=== PATIENT | female | born 1950 | race Two or more races ===

== ENCOUNTER 2023-10-22 05:59 | Inpatient (IN) | payer BC, MEDICARE ==
[~2023-10-22] VITALS: Ht 162.6 cm; Wt 82.0 kg
[2023-10-22] VITALS (7 sets, daily range): BP systolic 122–126; BP diastolic 60–69; PULSE 79–96; RESP 16–18; TEMP 97.5–98.5; O2SAT 93–96
[2023-10-22] MEDS: cefTRIAXone SOD 1,000 MG VL IM ONE (07:21)
[2023-10-22] MEDS: AZITHROMYCIN 500MG/ 250ML 250 ML IV ONE (07:44)
[2023-10-22] MEDS: LACTULOSE 20Gm/30ML SOLN PO ONE (07:53)
[2023-10-22] MEDS: SODIUM CHLORIDE 0.9% 1,000 ML IV ONE (07:55)
[2023-10-22 07:58] LABS: Urine Bacteria None Seen /hpf (None Seen)
[2023-10-22 08:07] LABS: Basophils # (auto) 0.1 10 ^3/uL (0-0.2); Basophils % (auto) 0.5 % (0.0-2.0); Eosinophils # (auto) 0.1 10 ^3/uL (0-0.8); Eosinophils % (auto) 0.5 % (0.0-7.0); Hematocrit 36.7 % (36.0-46.0); Hemoglobin 12.6 g/dL (12.2-16.2); Lymphocytes # (auto) 1.2 10 ^3/uL (0.4-5.4); Lymphocytes % (auto) 8.8 % (10.0-50.0); Mean Corpuscular Hemoglobin 31.3 pg (28.0-32.0); Mean Corpuscular Hgb Conc. 34.2 g/dL (32.0-36.0); Mean Corpuscular Volume 91.6 fL (80.0-100.0); Monocytes # (auto) 0.5 10 ^3/uL (0-1.3); Monocytes % (auto) 3.4 % (0.0-12.0); Neutrophils # (auto) 11.6 10 ^3/uL (1.6-8.6); Neutrophils % (auto) 86.8 % (37.0-80.0); Red Blood Cells 4.01 10^6/uL (4.0-5.20); Red Cell Distribution Width 13.3 % (11.8-14.3); White Blood Cell 13.4 10^3/uL (4.4-10.8)
[2023-10-22 08:10] LABS: Urine Blood Negative /uL (Negative); Urine Clarity Clear (Clear); Urine Color Colorless (Yellow); Urine Protein, UAD Negative (Negative); Urine Specific Gravity 1.011 (1.001-1.035); Urine Urobilinogen Normal (Negative); Urine WBC 1 /hpf (0 - 5); Urine pH 5.5 (5.0-9.0)
[2023-10-22 08:14] LABS: Chloride 108 mmol/L (98-107); Potassium 3.7 mmol/L (3.5-5.1); Sodium 141 mmol/L (136-145)
[2023-10-22 08:15] LABS: Anion Gap 10 (5-15); Carbon Dioxide 23 mmol/L (20-30)
[2023-10-22 08:16] LABS: Calcium 9.4 mg/dL (8.7-10.4)
[2023-10-22 08:20] LABS: Glucose 105 mg/dL (74-106)
[2023-10-22 08:21] LABS: BUN/Creatinine Ratio 16.9 (10.0-20.0); Blood Urea Nitrogen 12 mg/dL (9-23)
[2023-10-22 10:03] LABS: COVID19 ANTIGEN SOFIA FIA POSITIVE (NEGATIVE)
[2023-10-22] MEDS ORDERED: REMDESIVIR PER PHARMACY 0 ML IV SCH ×2 (10:30→10:45)
[2023-10-22] MEDS ORDERED: NITROGLYCERIN 0.4 MG SL TAB SL PRN ×2 (10:30→10:45)
[2023-10-22] MEDS ORDERED: ALBUTEROL SULF HFA 90MCG INH 200DOSE IN PRN ×2 (10:30→10:45)
[2023-10-22] MEDS ORDERED: ACETAMINOPHEN 500 MG TAB PO PRN ×2 (10:30→10:45)
[2023-10-22] MEDS ORDERED: ONDANSETRON HCL 4 MG/2 ML VIAL IV PRN ×2 (10:30→10:45)
[2023-10-22] MEDS ORDERED: DOXYCYCLINE 100MG/250ML 250 ML IV ONE (10:30)
[2023-10-22] MEDS ORDERED: MORPHINE SULFATE INJ 2 MG/ml SYRG IV PRN ×2 (10:30→10:45)
[2023-10-22] MEDS ORDERED: DOCUSATE SOD 100 MG CAP PO PRN ×2 (10:30→10:45)
[2023-10-22] MEDS ORDERED: SODIUM CHLORIDE 0.9% 1,000 ML IV SCH (10:30)
[2023-10-22] MEDS ORDERED: DOXYCYCLINE 100MG/250ML 250 ML IV SCH (10:30)
[2023-10-22 11:18] LABS: Thyroid Stimulating Hormone 1.44 uIU/mL (0.55-4.78)
[2023-10-22 11:34] LABS: Magnesium 2.1 mg/dL (1.6-2.6)
[2023-10-22 11:44] LABS: CRP High Sensitivity 3.54 mg/dL (<1.0)
[2023-10-22] MEDS: SODIUM CHLORIDE 0.9% 1,000 ML IV SCH (12:22)
[2023-10-22] MEDS: DexAMETHasone SOD PHOS 10MG/1ML VIAL INJ IV SCH (12:23)
[2023-10-22] MEDS: ZINC SULFATE 220mg CAP or TAB PO SCH (12:24)
[2023-10-22] MEDS: DOXYCYCLINE 100MG/250ML 250 ML IV ONE (12:25)
[2023-10-22] MEDS: DOXYCYCLINE 100MG/250ML 250 ML IV SCH (21:47)
[2023-10-23] VITALS (10 sets, daily range): BP systolic 100–129; BP diastolic 43–71; PULSE 69–83; RESP 16–20; TEMP 97.3–98.4; O2SAT 94–98
[2023-10-23 07:31] LABS: Basophils # (auto) 0 10 ^3/uL (0-0.2); Basophils % (auto) 0.1 % (0.0-2.0); Eosinophils # (auto) 0 10 ^3/uL (0-0.8); Lymphocytes % (auto) 16.2 % (10.0-50.0); Mean Corpuscular Hemoglobin 30.7 pg (28.0-32.0); Mean Corpuscular Hgb Conc. 33.2 g/dL (32.0-36.0); Mean Corpuscular Volume 92.6 fL (80.0-100.0); Monocytes # (auto) 0.8 10 ^3/uL (0-1.3); Monocytes % (auto) 6.3 % (0.0-12.0); Neutrophils # (auto) 9.4 10 ^3/uL (1.6-8.6); Neutrophils % (auto) 77.4 % (37.0-80.0); Red Blood Cells 3.89 10^6/uL (4.0-5.20); Red Cell Distribution Width 13.7 % (11.8-14.3); White Blood Cell 12.2 10^3/uL (4.4-10.8)
[2023-10-23 07:54] LABS: Alanine Aminotransferase 48 U/L (7-40); Albumin 3.9 g/dL (3.2-4.8); Alkaline Phosphatase 105 U/L (46-116); Anion Gap 11 (5-15); Aspartate Aminotransferase 28 U/L (13-40); BUN/Creatinine Ratio 14.8 (10.0-20.0); Blood Urea Nitrogen 9 mg/dL (9-23); Calcium 9.5 mg/dL (8.7-10.4); Carbon Dioxide 20 mmol/L (20-30); Chloride 111 mmol/L (98-107); Glucose 95 mg/dL (74-106); Potassium 3.8 mmol/L (3.5-5.1); Sodium 142 mmol/L (136-145)
[2023-10-23 07:55] LABS: Bilirubin, Total 0.3 mg/dL (0.2-1.0); Total Protein 6.7 g/dL (5.7-8.2)
[2023-10-23] MEDS ORDERED: ENOXAPARIN SOD 40 MG/0.4 ML SYRINGE SC SCH (10:00)
[2023-10-23] MEDS ORDERED: DexAMETHasone SOD PHOS 10MG/1ML VIAL INJ IV SCH (10:00)
[2023-10-23] MEDS ORDERED: ZINC SULFATE 220mg CAP or TAB PO SCH (10:00)
[2023-10-23] MEDS: ENOXAPARIN SOD 40 MG/0.4 ML SYRINGE SC SCH (10:15)
[2023-10-23] MEDS: SODIUM CHLORIDE 0.9% 1,000 ML IV SCH (13:45)
[2023-10-24 01:00] VITALS: BP 120/60; PULSE 69; RESP 17; TEMP 97.8; O2SAT 97
[2023-10-24 07:30] LABS: Anion Gap 8 (5-15); Carbon Dioxide 23 mmol/L (20-30); Chloride 110 mmol/L (98-107); Potassium 3.9 mmol/L (3.5-5.1); Sodium 141 mmol/L (136-145)
[2023-10-24 07:31] LABS: Calcium 9.3 mg/dL (8.7-10.4)
[2023-10-24 07:36] LABS: Blood Urea Nitrogen 13 mg/dL (9-23); Glucose 95 mg/dL (74-106)
[2023-10-24 08:00] VITALS: PULSE 83; RESP 20; O2SAT 97
[2023-10-24 08:03] LABS: BUN/Creatinine Ratio 18.6 (10.0-20.0); CRP High Sensitivity 1.05 mg/dL (<1.0)
[2023-10-24 09:00] VITALS: BP 118/69; PULSE 83; RESP 20; TEMP 97.9; O2SAT 97
[2023-10-24] MEDS: CHOLECALCIFEROL (VITD3) 1,000UNIT=25mCg TAB PO SCH (10:21)
[2023-10-24] MEDS: ZINC SULFATE 220mg CAP or TAB PO SCH (10:21)
[2023-10-24] MEDS: ASCORBIC ACID 500 MG TAB PO SCH (10:22)
[2023-10-24 10:47] VITALS: O2SAT 97
[2023-10-24 12:09] LABS: Erythrocyte Sedimentation Rate 38 mm/hr (0-20)
[2023-10-24 12:24] VITALS: BP 138/83; PULSE 68; RESP 20; TEMP 98.4; O2SAT 96
[2023-10-24] MEDS ORDERED: DOXY-447 PO (14:36)
[2023-10-24] MEDS ORDERED: BENZ100C97 PO (14:36)
[2023-10-24 15:17] VITALS: BP 136/81; PULSE 69; RESP 16; TEMP 98.6; O2SAT 96
== END 2023-10-24 15:35 | disposition home or self-care (01) | DRG 871 ==
LOC: ER 05:59 → OVERFLOW 10:31 → ER 10:31 → WEST WING 16:04
PROVIDERS: ADMIT Nurse Practitioner Family; ATTEND Nurse Practitioner Family
DX: A41.89 Other specified sepsis (principal); U07.1 COVID-19; J12.82 Pneumonia due to coronavirus disease 2019; J96.00 Acute respiratory failure, unspecified whether with hypoxia or hypercapnia; E66.9 Obesity, unspecified; E78.5 Hyperlipidemia, unspecified; Z86.11 Personal history of tuberculosis; Z68.31 Body mass index [BMI] 31.0-31.9, adult
CPT/HCPCS: 36415; 71046; 71250; 80048; 80053; 81001; 82306; 82728; 83605; 83615; 83735; 84443; 85025; 85379; 85652; 86141; 87040; 87426; G0378; J0696; J1100; J3490

== ENCOUNTER → 2023-12-28 | Outpatient (CLI) | payer BC, MEDICARE ==
[~2023-12-28] MED LIST: BENZ100C97 PO; DOXY1CAP58 PO
--- NOTE | 2024-01-05 12:26 | DVH ---
ULTRASOUND-GUIDED BIOPSY OF THE THYROID GLAND HISTORY: NODULE right lobe upper and lower pole COMPARISON: None TECHNIQUE: Informed consent was obtained. Risks versus benefits were discussed. Patient consents to the procedure. A time out was conducted confirming lab values, the correct patient, the correct procedure and site of procedure. FINDINGS: Informed consent was obtained. Risks versus benefits were discussed. Patient consents to the procedure. A time out was conducted confirming lab values, the correct patient, the correct procedure and site of procedure. The patient was prepped and draped in the usual sterile fashion. Local anesthesia was achieved using 1% lidocaine. A 22 needle was inserted into the target lesion of the right thyroid gland under ultrasound guidance. separate fine needle aspirations were performed and submitted to the on-site pathologist. Once the pathologist confirmed that sufficient cellular material had been obtained, the procedure was terminated. The patient tolerated the procedure well without any immediate complications and recovered for 2 hours. The patient was discharged without incident. IMPRESSION: 1. Ultrasound-guided fine-needle aspiration biopsy of the right upper and lower lobe thyroid nodule. DEN WONG
== END | disposition home or self-care (01) ==
LOC: XYW 10:35
PROVIDERS: ATTEND Internal Medicine
DX: E04.1 Nontoxic single thyroid nodule (principal)
CPT/HCPCS: 10005; 10006; 76942

== ENCOUNTER → 2024-02-08 | Outpatient (CLI) | payer BC, MEDICARE ==
--- NOTE | 2024-02-08 12:14 | DVH ---
US US GUIDANCE FOR NEEDLE PLACEME, HISTORY: Thyroid NODULES PROCEDURE: An informed consent was obtained. Limited localization ultrasound of the thyroid gland was obtained. The right neck base was prepped with chlorhexidine which was allowed to dry and draped in the usual sterile fashion. Timeout was performed. The skin and soft tissues were infiltrated with 1% Xylocaine. With ultrasound guidance, multiple fine needle aspirate biopsies of the nodules were obtai anita using a 25 gauge Secure-cut needle. The neck was cleaned and a sterile band-aid applied. The spec imens were sent to pathology for analysis. No immediate complication was identified. FINDINGS: Two solid and cystic thyroid nodules in the right thyroid lobe. Limited ultrasound of the thyroid during the biopsy demonstrates biopsy needle within nodules. IMPRESSION: Ultrasound FNA biopsy of both right thyroid nodules for molecular testing.
== END | disposition home or self-care (01) ==
LOC: US 10:30
PROVIDERS: ATTEND Nurse Practitioner Family
DX: E04.2 Nontoxic multinodular goiter (principal)
CPT/HCPCS: 10005; 10006; 76942

== ENCOUNTER → 2024-06-13 | Outpatient (CLI) | payer BC, MEDICARE ==
[2024-06-13 08:41] LABS: Hematocrit 40.9 % (36.0-46.0); Hemoglobin 13.6 g/dL (12.2-16.2); Mean Corpuscular Hemoglobin 30.9 pg (28.0-32.0); Mean Corpuscular Hgb Conc. 33.4 g/dL (32.0-36.0); Mean Corpuscular Volume 92.5 fL (80.0-100.0); Platelet Count (auto) 263 10^3/uL (140-450); Red Blood Cells 4.42 10^6/uL (4.0-5.20); Red Cell Distribution Width 13.9 % (11.8-14.3); White Blood Cell 7.6 10^3/uL (4.4-10.8)
[2024-06-13 08:48] LABS: Band Neutrophils % (manual) 0; Basophils % (manual) 0 (0.0-2.0); Blast Cells 0; Metamyelocytes % 0; Myelocytes % 0; Promyelocytes % 0; Reactive Lymphocytes 0
[2024-06-13 09:07] LABS: Lymphocytes % (manual) 25 (10.0-50.0); Monocytes % (manual) 8 (0-12)
[2024-06-13 09:08] LABS: Eosinophils % (manual) 13 (0-7); Platelet Estimate Adequate; RBC Morphology Normal
[2024-06-13 09:11] LABS: Alanine Aminotransferase 31 U/L (7-40); Albumin 4.6 g/dL (3.2-4.8); Alkaline Phosphatase 97 U/L (46-116); Anion Gap 9 (5-15); Aspartate Aminotransferase 27 U/L (13-40); BUN/Creatinine Ratio 20.5 (10.0-20.0); Bilirubin, Total 0.5 mg/dL (0.2-1.0); Blood Urea Nitrogen 17 mg/dL (9-23); Calcium 10.2 mg/dL (8.7-10.4); Carbon Dioxide 27 mmol/L (20-31); Chloride 106 mmol/L (98-107); Glucose 96 mg/dL (74-106); HDL Cholesterol 45 mg/dL (40-59); Potassium 4.3 mmol/L (3.5-5.1); Sodium 142 mmol/L (136-145); Total Protein 7.4 g/dL (5.7-8.2)
[2024-06-13 09:12] LABS: Cholesterol 296 mg/dL (< 200); LDL Cholesterol 218 mg/dL (< 100); Triglycerides 162 mg/dL (< 150)
== END | disposition home or self-care (01) ==
LOC: LAB 07:51
PROVIDERS: ATTEND Nurse Practitioner Family
DX: E78.5 Hyperlipidemia, unspecified (principal); E55.9 Vitamin D deficiency, unspecified; R79.89 Other specified abnormal findings of blood chemistry
CPT/HCPCS: 36415; 80053; 80061; 82306; 84443; 85007; 85027

== ENCOUNTER → 2024-07-03 | Outpatient (CLI) | payer BC, MEDICARE ==
[2024-07-03 08:25] LABS: Hematocrit 42.6 % (36.0-46.0); Mean Corpuscular Hemoglobin 30.4 pg (28.0-32.0); Mean Corpuscular Hgb Conc. 32.8 g/dL (32.0-36.0); Mean Corpuscular Volume 92.5 fL (80.0-100.0); Platelet Count (auto) 265 10^3/uL (140-450); Red Blood Cells 4.61 10^6/uL (4.0-5.20); White Blood Cell 6.7 10^3/uL (4.4-10.8)
[2024-07-03 08:26] LABS: Band Neutrophils % (manual) 0; Basophils % (manual) 0 (0.0-2.0); Blast Cells 0; Metamyelocytes % 0; Monocytes % (manual) 0 (0-12); Myelocytes % 0; Promyelocytes % 0; Reactive Lymphocytes 0
[2024-07-03 08:51] LABS: Alanine Aminotransferase 27 U/L (7-40); Albumin 4.6 g/dL (3.2-4.8); Alkaline Phosphatase 93 U/L (46-116); Anion Gap 10 (5-15); Aspartate Aminotransferase 20 U/L (13-40); BUN/Creatinine Ratio 11.5 (10.0-20.0); Bilirubin, Total 0.5 mg/dL (0.2-1.0); Blood Urea Nitrogen 10 mg/dL (9-23); Calcium 9.8 mg/dL (8.7-10.4); Carbon Dioxide 26 mmol/L (20-31); Chloride 106 mmol/L (98-107); Glucose 102 mg/dL (74-106); Potassium 3.6 mmol/L (3.5-5.1); Sodium 142 mmol/L (136-145); Total Protein 7.5 g/dL (5.7-8.2)
[2024-07-03 08:53] LABS: Thyroid Stimulating Hormone 2.14 uIU/mL (0.55-4.78)
[2024-07-03 10:13] LABS: Eosinophils % (manual) 11 (0-7); Lymphocytes % (manual) 42 (10.0-50.0)
[2024-07-03 10:14] LABS: Platelet Estimate Adequate
== END | disposition home or self-care (01) ==
LOC: LAB 07:48
PROVIDERS: ATTEND Internal Medicine
DX: E04.1 Nontoxic single thyroid nodule (principal)
CPT/HCPCS: 36415; 80053; 83615; 84436; 84443; 85007; 85027